=== PATIENT | female | born 1950 | race African-American/Black ===

== ENCOUNTER 2024-12-03 16:54 | Inpatient (IN) | payer MEDICARE, OTHER ==
[~2024-12-03] VITALS: Ht 170.2 cm; Wt 107.0 kg
[2024-12-03] MEDS: ACETAMINOPHEN 1000MG/100ML 100 ML IV ONE (18:15)
[2024-12-03 18:26] LABS: HEMATOCRIT. 32.9 % (36.0-48.0); HEMOGLOBIN. 10.9 g/dL (12.0-16.0); MEAN CORPUSCULAR HEMOGLOBIN 26.3 pg (28.0-32.0); MEAN CORPUSCULAR HGB CONC 33.2 g/dL (31.0-37.0); MEAN CORPUSCULAR VOLUME 79.1 fL (81.0-99.0); MEAN PLATELET VOLUME 8.1 fl (7.4-10.4); PLATELET 695 x1000/uL (130-400); RED BLOOD CELL COUNT 4.16 mill/uL (4.2-5.4); RED CELL DISTRIBUTION WIDTH 15.8 % (11.6-14.6); WHITE BLOOD COUNT 23.5 x1000/uL (4.5-11.0)
[2024-12-03 18:28] LABS: DIFFERENTIAL COMMENT 1
[2024-12-03] MEDS: MORPHINE SULFATE 4 MG/ML INJ (FOR IV/IM USE) IV STA (18:41)
[2024-12-03] MEDS: SODIUM CHLORIDE 0.9% 1,000 ML IV ONE (18:53)
[2024-12-03 18:57] LABS: MICROCYTOSIS 1+; PLATELET ESTIMATE INCREASED
[2024-12-03] MEDS: CEFTRIAXONE 1GM/50ML 50 ML IV NR (21:59)
[2024-12-03 22:10] LABS: POTASSIUM 4.5 mEq/L (3.5-5.1)
[2024-12-03 22:11] LABS: CALCIUM 9.4 mg/dL (8.7-10.4)
[2024-12-03 22:16] LABS: CREATININE 1.2 mg/dL (0.6-1.0)
[2024-12-03] MEDS ORDERED: SODIUM CHLORIDE 0.9% 1,000 ML IV NR (22:30)
[2024-12-03] MEDS ORDERED: SODIUM CHLORIDE 0.9% 500 ML IV NR (22:30)
[2024-12-04] VITALS (7 sets, daily range): BP systolic 106–138; BP diastolic 48–66; PULSE 70–89; RESP 17–20; TEMP 35.9–36.6; O2SAT 94–97
[2024-12-04] MEDS ORDERED: ONDANSETRON HCL 4MG/2ML INJ IV PRN (01:15)
[2024-12-04] MEDS ORDERED: CLONIDINE 0.1MG TABLET PO PRN (01:15)
[2024-12-04] MEDS ORDERED: ACETAMINOPHEN 325MG TABLET PO PRN (01:15)
[2024-12-04] MEDS ORDERED: IPRATROPIUM/ALBUTEROL 0.5-3(2.5)MG/3ML NEB NEB PRN (01:15)
[2024-12-04] MEDS ORDERED: ZOLPIDEM TARTRATE 5MG TABLET PO PRN (01:15)
[2024-12-04] MEDS: SODIUM CHLORIDE 0.9% 1,000 ML IV SCH (02:27)
[2024-12-04] MEDS: VANCOMYCIN 1G PREMIX 200 ML IV SCH (02:27)
[2024-12-04] MEDS: VANCOMYCIN 750MG/150ML (BAXTER) IV NR (03:56)
[2024-12-04] MEDS: PIPERACILLIN/TAZO 3.375G/50ML 50 ML IV SCH (06:01)
[2024-12-04] MEDS: PANTOPRAZOLE SODIUM 40 MG/VIAL IV SCH (08:35)
[2024-12-04] MEDS: ENOXAPARIN 30MG/0.3ML SYR SUBCUT SCH (08:35)
[2024-12-04 09:32] LABS: PROTHROMBIN TIME 11.2 sec (9.6-11.0)
[2024-12-04 09:52] LABS: TROPONIN I HIGH SENSITIVITY 8 ng/L (3.0-34)
[2024-12-04 17:13] LABS: TROPONIN I HIGH SENSITIVITY 10 ng/L (3.0-34)
[2024-12-04 21:40] LABS: CLARITY URINE TURBID (CLEAR); COLOR URINE YELLOW (YELLOW); GLUCOSE URINE NEGATIVE (NEGATIVE); KETONES URINE NEGATIVE (NEGATIVE); LEUKOCYTE ESTERASE URINE 3+ (NEGATIVE); NITRITE URINE POSITIVE (NEGATIVE); OCCULT BLOOD URINE 1+ (NEGATIVE); PROTEIN URINE NEGATIVE (NEGATIVE); SPECIFIC GRAVITY URINE 1.017 (1.005-1.030)
[2024-12-04 21:55] LABS: *AMPHETAMINES SCREEN URINE NEGATIVE (NEGATIVE); *BARBITURATES SCREEN URINE NEGATIVE (NEGATIVE); *BENZODIAZEPINES SCREEN URINE NEGATIVE (NEGATIVE); *COCAINE SCREEN URINE NEGATIVE (NEGATIVE); METHADONE URINE SCREEN NEGATIVE (NEGATIVE)
[2024-12-04 21:56] LABS: CANNABINOID URINE SCREEN NEGATIVE (NEGATIVE); ECSTASY MDMA SCREEN URINE NEGATIVE (NEGATIVE); OPIATES URINE SCREEN PRESUMPTIVE POSITIVE (NEGATIVE); PHENCYCLIDINE URINE SCREEN NEGATIVE (NEGATIVE)
[2024-12-04 22:05] LABS: BACTERIA URINE 2+; SQUAMOUS EPITHELIAL CELL URINE 1+ /lpf (RARE/1+); WBC URINE TNTC /hpf (0-2)
[2024-12-05] VITALS: BP 124/68; PULSE 90; RESP 20; TEMP 36.2; O2SAT 95
[2024-12-05 04:00] VITALS: BP 137/57; PULSE 85; RESP 19; TEMP 36.1; O2SAT 99
[2024-12-05 08:00] VITALS: BP_SYST 129; BP_SYST 144; BP_DIAS 65; BP_DIAS 68; PULSE 75; PULSE 82; RESP 16; RESP 19; TEMP 36.1; TEMP 36.4; TEMP 36.6; O2SAT 100; O2SAT 96; O2SAT 98
[2024-12-05] MEDS: VANCOMYCIN 1GM PMX (XELLIA) 200 ML IV SCH (09:22)
[2024-12-05] MEDS: HYDROCODONE/ACETAMINOPHEN 5/325MG TABLET PO PRN (09:25)
[2024-12-05 12:00] VITALS: BP 125/58; PULSE 80; RESP 18; TEMP 36.1; O2SAT 96
[2024-12-05 16:00] VITALS: BP 136/63; PULSE 85; RESP 17; TEMP 36.3; O2SAT 96
[2024-12-05 20:00] VITALS: BP 134/61; PULSE 92; RESP 19; TEMP 36.4; O2SAT 94
[2024-12-05] MEDS ORDERED: NALOXONE HCL 0.4MG/ML VIAL IV PRN (23:30)
[2024-12-06] VITALS: BP 133/64; PULSE 83; RESP 19; TEMP 36.1; O2SAT 100
[2024-12-06 02:25] LABS: BASOPHILS % 0.3 % (0.0-2.0); DIFFERENTIAL COMMENT 0; EOSINOPHILS % 0.4 % (0.0-5.0); HEMATOCRIT. 33.2 % (36.0-48.0); HEMOGLOBIN. 10.7 g/dL (12.0-16.0); LYMPHOCYTES % 9.8 % (20.0-50.0); MEAN CORPUSCULAR HEMOGLOBIN 26.2 pg (28.0-32.0); MEAN CORPUSCULAR HGB CONC 32.2 g/dL (31.0-37.0); MEAN CORPUSCULAR VOLUME 81.4 fL (81.0-99.0); MEAN PLATELET VOLUME 6.9 fl (7.4-10.4); MONOCYTES % 7.7 % (2.0-8.0); NEUTROPHILS % 81.8 % (40.0-76.0); PLATELET 637 x1000/uL (130-400); RED BLOOD CELL COUNT 4.08 mill/uL (4.2-5.4); RED CELL DISTRIBUTION WIDTH 15.2 % (11.6-14.6)
[2024-12-06 02:39] LABS: CHLORIDE 103 mEq/L (98-107); POTASSIUM 4.4 mEq/L (3.5-5.1); SODIUM 135 mEq/L (136-145)
[2024-12-06 02:40] LABS: CARBON DIOXIDE 24 mEq/L (21-32)
[2024-12-06 02:41] LABS: CALCIUM 10.3 mg/dL (8.7-10.4)
[2024-12-06 02:45] LABS: GLUCOSE 117 mg/dL (70-105); UREA NITROGEN BLOOD 61 mg/dL (9-23)
[2024-12-06 04:00] VITALS: BP 124/54; PULSE 92; RESP 20; TEMP 36.4; O2SAT 100
[2024-12-06 07:41] LABS: HEMATOCRIT. 33.3 % (36.0-48.0); HEMOGLOBIN. 10.6 g/dL (12.0-16.0); MEAN CORPUSCULAR HEMOGLOBIN 25.9 pg (28.0-32.0); MEAN CORPUSCULAR HGB CONC 31.7 g/dL (31.0-37.0); MEAN CORPUSCULAR VOLUME 81.8 fL (81.0-99.0); PLATELET 665 x1000/uL (130-400); RED BLOOD CELL COUNT 4.07 mill/uL (4.2-5.4); RED CELL DISTRIBUTION WIDTH 15.5 % (11.6-14.6); WHITE BLOOD COUNT 20.3 x1000/uL (4.5-11.0)
[2024-12-06 07:49] LABS: CARBON DIOXIDE 24 mEq/L (21-32); CHLORIDE 102 mEq/L (98-107); POTASSIUM 4.3 mEq/L (3.5-5.1); SODIUM 137 mEq/L (136-145)
[2024-12-06 07:50] LABS: CALCIUM 10.1 mg/dL (8.7-10.4)
[2024-12-06 07:55] LABS: GLUCOSE 98 mg/dL (70-105); UREA NITROGEN BLOOD 57 mg/dL (9-23)
[2024-12-06 08:03] VITALS: BP 136/64; PULSE 81; RESP 20; TEMP 36; O2SAT 96
[2024-12-06 08:19] LABS: DIFFERENTIAL COMMENT 1
[2024-12-06 12:08] VITALS: BP 134/56; PULSE 88; RESP 20; TEMP 36.3; O2SAT 95
[2024-12-06 16:22] VITALS: BP 137/62; PULSE 75; RESP 18; TEMP 36.3; O2SAT 100
[2024-12-06 17:30] LABS: PLATELET ESTIMATE INCREASED
[2024-12-06 18:24] VITALS: BP 143/69; PULSE 90; TEMP 96.1; O2SAT 99
== END 2024-12-06 19:23 | disposition short-term general hospital (02) | DRG 872 ==
LOC: ER 16:54 → 7WST 22:52 → EDBEDREQ 23:27 → EDBEDREQTM 23:27 → EDBEDREQSVC 23:27 → UNDODISIN 12-04 17:10
PROVIDERS: ADMIT Internal Medicine; ATTEND Internal Medicine
DX: A41.9 Sepsis, unspecified organism (principal); E87.1 Hypo-osmolality and hyponatremia; E87.20 Acidosis, unspecified; N17.9 Acute kidney failure, unspecified; N39.0 Urinary tract infection, site not specified; N18.9 Chronic kidney disease, unspecified; I12.9 Hypertensive chronic kidney disease with stage 1 through stage 4 chronic kidney disease, or unspecified chronic kidney disease; M19.90 Unspecified osteoarthritis, unspecified site; D50.9 Iron deficiency anemia, unspecified; E78.00 Pure hypercholesterolemia, unspecified; E66.01 Morbid (severe) obesity due to excess calories; G89.29 Other chronic pain; R62.7 Adult failure to thrive; Z68.37 Body mass index [BMI] 37.0-37.9, adult; Z79.899 Other long term (current) drug therapy
CPT/HCPCS: 36415; 71045; 76770; 80048; 80305; 81003; 83605; 83880; 84145; 84484; 85025; 87077; 87186; 93306; 93970; 99285; J0696; J1650; J2270; J2470; J2543; J3370; J7030; J0131